=== PATIENT | male | born 1970 | race Caucasian/White ===

== ENCOUNTER 2016-08-30 08:02 | Emergency (ER) | payer BC ==
[2016-08-30 08:22] VITALS: BP 139/92
--- NOTE | 2016-08-30 08:22 | UC ---
Skin Complaint HPI - HPI Summary HPI Summary: 46 y/o male presents to the urgent care c/o bug bite in his RT side of his neck since last Tuesday night 08/27/2016. Pt thinks it can be a tick bite, but he is not sure. [place] is usually in the [place] and about 2 months ago, he had to remove several ticks from his body. He reports, he felt weak, join pains, fever and ISSA yesterday. He took ibuprofen 400mg PO and his fever resolved. He also feels a lymph node swollen near the rash which is tender. Pt denies SOB, chest pain, ISSA, N/V/D, urinary symptoms. Pt also reports he has HX of a stroke last year after a complication with his carotid artery. Pt has not other complains. - History of Current Complaint Time Seen by Provider: 08/30/16 08:18 Stated Complaint: SPIDER BITE Hx Obtained From: Patient Onset/Duration: Sudden Onset, Lasting Days, Still Present Skin Exposure Onset/Duration: Days Ago Timing: Constant Onset Severity: Mild Current Severity: Severe Pain Intensity: 4 Pain Scale Used: 0-10 Numeric Location: Discrete - Rash in the lateral side of his neck Character: Swelling, Pruritus, Pain, Redness Aggravating: Touch Alleviating: OTC Meds Associated Signs & Symptoms: Positive: Weakness, Fever, Tenderness. Negative: Nausea, Vomiting, Numbness, Chills, Cough, Wheezing, Chest Pain, Red Streaks, Joint Swelling Related History: Possible Reaction to: Insect - Allergy/Home Medications Allergies/Adverse Reactions: Allergies Allergy/AdvReac Type Severity Reaction Status Date / Time Metoclopramide [From Reglan] Allergy Hallucinati Verified 08/30/16 08:09 ons blue cheese Allergy See Comment Uncoded 08/30/16 08:09 cats Allergy watery eyes Uncoded 08/30/16 08:09 kiwi Allergy throat Uncoded 08/30/16 08:09 closes, difficulty breathing mold Allergy funny Uncoded 08/30/16 08:09 feeling in nasal passage Home Medications: Home Medications Aspirin TAB* [Aspirin 325 MG TAB*] 1 tab PO DAILY 08/30/16 [History Confirmed ] Divalproex DR TAB(*) [Depakote DR TAB(*)] 0.5 tab PO DAILY 08/30/16 [History Confirmed 08/30/16] Review of Systems Constitutional: Fever - at home Skin: Rash - at the RT side of neck Eyes: Negative ENT: Negative Respiratory: Negative Cardiovascular: Negative Gastrointestinal: Negative Genitourinary: Negative Motor: Negative Neurovascular: Negative Musculoskeletal: Arthralgia - all joins Neurological: Headache - mild Psychological: Negative All Other Systems Reviewed And Are Negative: Yes PMH/Surg Hx/FS Hx/Imm Hx Previously Healthy: Yes Cardiovascular History: Hypertension, Other Other Cardiovascular History: Carotid artery stenosis Other GI/ History: IBS Neurological History: Seizures Other Neurological History: [place] 2015 - Surgical History Surgical History: Yes Surgery Procedure, Year, and Place: age 4 TONSILLECTOMY, [place]. 1978 AGE 8 , CYST REMOVED FROM THROAT, [place], [place]. 03/2012 LIPOMA REMOVED FROM RIGHT ARM, [place]. 2011 COLONOSCOPY WITH POLYPECTOMY, [facility] [place]. HERNIA REPAIR 2012 LEFT INGNAL - Family History Known Family History: Positive: Hypertension, Respiratory Disease - COPD, Other - mental illness, ischemic colitis, lupus, sjogren's syndrome Negative: Blood Disorder - NEGATIVE for bleeding or clotting disorders - Social History Occupation: Employed Full-time Lives: With Family Alcohol Use: Occasionally Alcohol Amount: a little bit of scotch Substance Use Type: None Smoking Status (MU): Never Smoked Tobacco Physical Exam Triage Information Reviewed: Yes Appearance: Well-Appearing, No Pain Distress, Well-Nourished, Obese Vital Signs Reviewed: Yes Eye Exam: Normal Eyes: Positive: Conjunctiva Clear - PERRLA, EOMI, fundi grossly normal. ENT Exam: Normal ENT: Positive: Normal ENT inspection, Hearing grossly normal, Pharynx normal, TMs normal Dental Exam: Normal Neck exam: Normal Neck: Positive: Supple, Nontender, Tenderness @ - Positive Rt cervical lymphnode tender to palpation and swollen., Other: Respiratory Exam: Normal Respiratory: Positive: Chest non-tender, Lungs clear, Normal breath sounds Cardiovascular Exam: Normal Cardiovascular: Positive: RRR, No Murmur, Pulses Normal, Brisk Capillary Refill Abdominal Exam: Normal Abdomen Description: Positive: Nontender, No Organomegaly, Soft. Negative: CVA Tenderness (R), CVA Tenderness (L) Bowel Sounds: Positive: Present Musculoskeletal Exam: Normal Musculoskeletal: Positive: Strength Intact, ROM Intact, No Edema Neurological Exam: Normal Psychological Exam: Normal Skin: Positive: rashes - Positive erythematous patch at the back of the lateral side of neck, non tender to palpation, about 3cm x 4cm in size. No central clearing observed. Course/Dx - Course Course Of Treatment: 46 y/o male presents to the urgent care c/o bug bite in his RT side of his neck since last Tuesday night 08/27/2016. Pt thinks it can be a tick bite, but he is not sure. [place] and about 2 months ago, he had to remove several ticks from his body. He reports, he felt weak, join pains, fever and ISSA yesterday. He took ibuprofen 400mg PO and his fever resolved. He also feels a lymph node swollen near the rash which is tender. Pt denies SOB, chest pain, ISSA, N/V/D, urinary symptoms. Pt also reports he has HX of a stroke last year after a complication with his carotid artery. Pt has not other complains. HX obtained. PE abnormal findings: Positive erythematous patch at the back of the lateral side of neck, non tender to palaption, about 3cm x 4cm in size. Positive Rt cervical lymphnode tender to palpation and swollen. Pt with ISSA, arthalgias, Hx of tick bites w/o any prophylactive treatment. Lyme serology ordered. Pt Rx Doxyxycline PO for 21 days and advised to take full course of antibiotic despite the lab results. To f/u with PCP for further management and if results return positive to f/u with Dr Borja infectious spcialist. Pt understood and agreed. Pt with HX of HTN. BP: 139/ 92. Pt has not taken medication today. Pt advised to decrease salt intake and to take his medication regularly. Advised to f/u with his PCP for further management. Pt understood and agreed. Left the clinic ambulating. - Differential Diagnoses - Skin Complaint Differential Diagnoses: Cellulitis, Contact Dermatitis, Eczema, Poison Garima, Tick Born Illness, Urticaria - Diagnoses Provider Diagnoses: 1- Rash and arthalgias r/o Lyme disease Discharge - Discharge Plan Condition: Stable Disposition: HOME Prescriptions: DOXYcycline CAP(*) [DOXYcycline 100MG CAP(*)] 100 mg PO BID #42 cap Patient Education Materials: Lyme Disease (ED) Referrals: Jonh ROME,Demario Pro [Medical Doctor] - If Needed Jasbir Rodriguez MD [Primary Care Provider] - 7 Days Additional Instructions: Please take medications as instructed and finish the full course of treatment even if the Lyme serology returns negative. If you do not improve or if symptoms worsen please go to ht eER immediately for further treatment. Please f /u with your PCP in 1 week for further management on possible Lyme and your HTN. Please take your BP medication and decrease salt intake in your diet. If Lyme serology returns positive f/u W/ Dr Borja.
== END 2016-08-30 08:46 | disposition home or self-care (01) ==
LOC: UCEAST 08:02
DX: R21 Rash and other nonspecific skin eruption (principal); M25.50 Pain in unspecified joint; I10 Essential (primary) hypertension; I65.29 Occlusion and stenosis of unspecified carotid artery; K58.9 Irritable bowel syndrome, unspecified; Z86.73 Personal history of transient ischemic attack (TIA), and cerebral infarction without residual deficits; Z79.82 Long term (current) use of aspirin
CPT/HCPCS: 86618; 99212; G0463

== ENCOUNTER 2018-08-19 07:15 | Emergency (ER) | payer BC, OTHER ==
[2018-08-19 07:37] VITALS: BP 145/87
[2018-08-19] MEDS ORDERED: DOXYcycline CAP(*) 100 MG PO ONE (07:45)
--- NOTE | 2018-08-19 07:45 | UC ---
Skin Complaint HPI - HPI Summary HPI Summary: 48-year-old male comes in with a chief complaint of feeling ill and a rash of the right foot and a tick bite in the left chest wall. 3 days ago patient noticed a tick on the left chest wall and he pulled off. Also started with some redness between the first and second toes of his right foot 3 days ago. He 's been treating it with antifungal's but continues to get worse. Redness is spread and overnight patient started feeling ill with some chills. Tick bite area has not developed into a bull's-eye rash there is a small area of redness there. - History of Current Complaint Chief Complaint: UCSkin Time Seen by Provider: 08/19/18 07:31 Stated Complaint: RT FOOT PAIN Pain Intensity: 6 - Allergy/Home Medications Allergies/Adverse Reactions: Allergies Allergy/AdvReac Type Severity Reaction Status Date / Time metoclopramide [From Reglan] Allergy Hallucinati Verified 08/19/18 07:21 ons MS Metoclopramide Allergy Hallucinati Verified 08/30/16 08:09 [From Reglan] ons blue cheese Allergy See Comment Uncoded 08/30/16 08:09 cats Allergy watery eyes Uncoded 08/30/16 08:09 kiwi Allergy throat Uncoded 08/30/16 08:09 closes, difficulty breathing mold Allergy funny Uncoded 08/30/16 08:09 feeling in nasal passage Home Medications: Home Medications Metoprolol Succinate XL TAB* [Toprol XL TAB*] 25 mg PO DAILY 08/19/18 [History Confirmed 08/19/18] Testosterone GEL (NF) [Androgel (NF)] 50 mg TOPICAL DAILY 08/19/18 [History Confirmed 08/19/18] PMH/Surg Hx/FS Hx/Imm Hx Previously Healthy: Yes Cardiovascular History: Hypertension - Surgical History Surgical History: Yes Surgery Procedure, Year, and Place: age 4 TONSILLECTOMY, [place]. 1978 AGE 8 , CYST REM[place] FROM THROAT, [place]. 03/2012 LIPOMA REMOVED FROM RIGHT ARM, [place]. 2011 COLONOSCOPY WITH [place]CTOMY, [facility] [place]. HERNIA REPAIR 2013 LEFT INGNAL - Family History Known Family History: Positive: Hypertension, Respiratory Disease - COPD, Other - mental illness, ischemic colitis, lupus, sjogren's syndrome Negative: Blood Disorder - NEGATIVE for bleeding or clotting disorders - Social History Alcohol Use: Occasionally Alcohol Amount: a little bit of scotch Substance Use Type: None Smoking Status (MU): Never Smoked Tobacco Review of Systems All Other Systems Reviewed And Are Negative: Yes Constitutional: Positive: Chills Skin: Positive: Rash Eyes: Positive: Negative ENT: Positive: Negative Respiratory: Positive: Negative Cardiovascular: Positive: Negative Gastrointestinal: Positive: Negative Motor: Positive: Negative Neurovascular: Positive: Negative Musculoskeletal: Positive: Negative Neurological: Positive: Negative Psychological: Positive: Negative Is Patient Immunocompromised?: No Physical Exam Triage Information Reviewed: Yes Appearance: No Pain Distress, Well-Nourished, Ill-Appearing - MILD Vital Signs: Initial Vital Signs Temp 99.1 F 08/19/18 07:34 Pulse 107 08/19/18 07:34 Resp 18 08/19/18 07:34 BP 145/87 08/19/18 07:34 Pulse Ox 96 08/19/18 07:34 Vital Signs Reviewed: Yes Eye Exam: Normal Eyes: Positive: Conjunctiva Clear Neck: Positive: Supple Respiratory: Positive: No respiratory distress Musculoskeletal: Positive: Strength Intact, ROM Intact Neurological: Positive: Alert, Muscle Tone Normal Psychological: Positive: Age Appropriate Behavior Skin: Positive: Other - On the left chest wall there is a 1 cm area of erythema. This is the site of the tick bite there is no bull's-eye rash. On the right foot between the first and second toes there is erythema that's blanching about 4 cm in diameter. Is tender to palpation and there is some swelling there is no streaking. No drainage. Course/Dx - Course Course Of Treatment: Patient feels ill. Is no bull's-eye rash at the tick bite however generalized illness could be caused by Lyme disease. Also the cellulitis in his foot could be causing him to feel ill. We discussed different treatments and decided to treat with doxycycline 100 mg by mouth twice a day 14 days to cover both cellulitis and Lyme disease. We discussed that if he got worse to get reevaluated in the emergency department. We discussed the signs and symptoms of sepsis that if he had no signs or symptoms or any other concerns she needs reevaluation in the emergency department. - Diagnoses Provider Diagnosis: Cellulitis of foot, right, Tick bite Discharge - Sign-Out/Discharge Documenting (check all that apply): Patient Departure All imaging exams completed and their final reports reviewed: No Studies - Discharge Plan Condition: Stable Disposition: HOME Prescriptions: DOXYcycline CAP(*) [DOXYcycline 100MG CAP(*)] 100 mg PO BID #28 cap Patient Education Materials: Cellulitis (ED), Tick Bite (ED) Referrals: Martinez Chang MD [Primary Care Provider] - Additional Instructions: FOLLOW UP WITH YOUR DOCTOR IF NOT COMPLETELY IMPROVED. GO TO THE EMERGENCY DEPARTMENT IF YOUR CONDITION WORSENS; FEVER, CHILLS, YOU FEEL ILL, SPREAD OF INFECTION OR ANY QUESTIONS OR CONCERNS. - Billing Disposition and Condition Condition: STABLE Disposition: Home
== END 2018-08-19 07:55 | disposition home or self-care (01) ==
LOC: UCEAST 07:15
DX: L03.115 Cellulitis of right lower limb (principal); S20.369A Insect bite (nonvenomous) of unspecified front wall of thorax, initial encounter; W57.XXXA Bitten or stung by nonvenomous insect and other nonvenomous arthropods, initial encounter; Y92.9 Unspecified place or not applicable; I10 Essential (primary) hypertension
CPT/HCPCS: 99212; A9270-GY; G0463